=== PATIENT | male | born 1955 | race Caucasian/White ===

== ENCOUNTER 2020-07-19 00:47 | Day surgery (SDC) | payer SELFPAY ==
[~2020-07-19 00:47] MED LIST: [UNRECOGNIZED DRUG - OTHER]; [UNRECOGNIZED DRUG - REMARK]
== END 2020-07-19 23:45 ==
LOC: WOUND 00:47
DX: L89.892 Pressure ulcer of other site, stage 2 (principal)
CPT/HCPCS: A9270; G0463

== ENCOUNTER 2020-07-26 00:41 | Day surgery (SDC) | payer SELFPAY | END 2020-07-26 23:40 | disposition home or self-care (01) | LOC: WOUND 00:41 | DX: L97.518 Non-pressure chronic ulcer of other part of right foot with other specified severity (principal) | CPT/HCPCS: A9270; G0463 ==

== ENCOUNTER 2020-08-02 00:33 | Day surgery (SDC) | payer SELFPAY | END 2020-08-02 23:59 | disposition home or self-care (01) | LOC: WOUND 00:33 | DX: L89.892 Pressure ulcer of other site, stage 2 (principal) | CPT/HCPCS: A9270; G0463 ==